=== PATIENT | female | born 1990 | race African-American/Black ===

== ENCOUNTER 2016-09-15 08:13 | Emergency (ER) | payer MEDICAID ==
[~2016-09-15] VITALS: Ht 175.3 cm; Wt 85.9 kg
[~2016-09-15 08:13] MED LIST: ADV500 IH; ALBU17AE27 IH; PREN1TAB80 PO
[2016-09-15] MEDS ORDERED: ALBUTEROL SULFATE HFA 90 MCG/PUFF 8 GM INHALER IH ONE (09:15)
[2016-09-15 10:11] VITALS: BP 130/60
== END 2016-09-15 10:13 | disposition home or self-care (01) ==
LOC: EMS 08:15
DX: J40 Bronchitis, not specified as acute or chronic (principal); J45.909 Unspecified asthma, uncomplicated; F12.90 Cannabis use, unspecified, uncomplicated; Z91.018 Allergy to other foods
CPT/HCPCS: 94640; 99283; J3535

== ENCOUNTER 2017-06-22 21:40 | Emergency (ER) | payer MEDICAID ==
[~2017-06-22] VITALS: Ht 170.2 cm; Wt 92.3 kg
[~2017-06-22 21:40] MED LIST changes: -ADV500 IH; -PREN1TAB80 PO
[2017-06-22 21:57] VITALS: BP 166/89
== END 2017-06-22 22:16 | disposition left against medical advice (07) ==
LOC: EMS 21:47
DX: T78.1XXA Other adverse food reactions, not elsewhere classified, initial encounter (principal); J45.909 Unspecified asthma, uncomplicated; F12.90 Cannabis use, unspecified, uncomplicated; Z53.21 Procedure and treatment not carried out due to patient leaving prior to being seen by health care provider; Y92.511 Restaurant or cafe as the place of occurrence of the external cause

== ENCOUNTER 2017-11-19 01:27 | Observation (INO) | payer MEDICAID ==
[~2017-11-19] VITALS: Ht 177.8 cm; Wt 104.3 kg
[2017-11-19 02:02] VITALS: BP 166/85
[2017-11-19 02:54] LABS: GLUCOMETER DEV NAME(LOC) 4S 8; GLUCOSE,POINT OF CARE 100 MG/DL (70-110)
[2017-11-19 05:14] LABS: APPEARANCE,URINE CLEAR (CLEAR); GLUCOSE, URINE (UA) NEGATIVE (NEGATIVE); KETONES,URINE NEGATIVE (NEGATIVE); LEUKOCYTE ESTERASE ,URINE NEGATIVE (NEGATIVE); NITRATE,URINE NEGATIVE (NEGATIVE); OCCULT BLOOD,URINE NEGATIVE (NEGATIVE); PH,URINE 8.5 (5.0-8.0); PROTEIN,URINE SEE CONFIRM (NEGATIVE); UROBILINOGEN,URINE 0.2 mg/dL (<=1.0)
[2017-11-19 05:15] LABS: BILIRUBIN,URINE PRELIM. POSITIVE (NEGATIVE)
[2017-11-19 05:35] LABS: SULFOSALICYLIC ACID,URINE Trace (Negative)
[2017-11-19 05:36] LABS: BACTERIA,URINE None Seen /HPF (None Seen); RBC,URINE None Seen /HPF (0-2); SQUAMOUS EPITHELIAL CELL,UR Moderate /LPF (None Seen); WBC,URINE 0-2 /HPF (0-5)
== END 2017-11-19 03:45 | disposition home or self-care (01) ==
LOC: 4S 01:27
PROVIDERS: ADMIT Obstetrics & Gynecology; ATTEND Obstetrics & Gynecology
DX: O62.9 Abnormality of forces of labor, unspecified (principal); O26.893 Other specified pregnancy related conditions, third trimester; R10.30 Lower abdominal pain, unspecified; Z3A.34 34 weeks gestation of pregnancy
CPT/HCPCS: 59025; 80307; 80324; 80349

== ENCOUNTER 2018-05-15 05:24 | Emergency (ER) | payer MEDICAID ==
[~2018-05-15 05:24] MED LIST changes: -ALBU17AE27 IH; +ARIP10TA8 PO
== END 2018-05-15 05:30 | disposition left against medical advice (07) ==
LOC: EMS 05:24
DX: M25.569 Pain in unspecified knee (principal); Z53.21 Procedure and treatment not carried out due to patient leaving prior to being seen by health care provider

== ENCOUNTER 2018-06-07 22:53 | Inpatient (IN) | payer MEDICAID ==
[~2018-06-07] VITALS: Ht 172.7 cm; Wt 85.3 kg
[2018-06-07] MEDS ORDERED: LORazepam 2 MG/ML VIAL IM ONE (23:00)
[2018-06-07] MEDS ORDERED: HALOPERIDOL LACTATE 5 MG/ML VIAL IM ONE (23:00)
[2018-06-07] MEDS ORDERED: DiphenhydrAMINE HCL 50 MG/ML VIAL IM ONE (23:00)
[2018-06-07] MEDS ORDERED: DiphenhydrAMINE HCL 50 MG/ML VIAL ONE (23:01)
[2018-06-07] MEDS ORDERED: HALOPERIDOL LACTATE 5 MG/ML VIAL ONE (23:01)
[2018-06-07] MEDS ORDERED: LORazepam 2 MG/ML VIAL ONE (23:01)
[2018-06-08 00:49] LABS: BASOPHILS % (AUTO) 0.8 % (0.0-2.0); EOSINOPHILS % (AUTO) 6.1 % (1.0-6.0); HEMATOCRIT 35.7 % (36-46); HEMOGLOBIN 11.6 g/dL (12.0-16.0); LYMPHOCYTES # (AUTO) 2.7 K/uL (1.0-4.8); LYMPHOCYTES % (AUTO) 38.6 % (22.0-44.0); MEAN CORPUSCULAR HEMOGLOBIN 27.8 pg (26.0-34.0); MEAN CORPUSCULAR HGB CONC 32.6 G/dL (31.0-37.0); MEAN CORPUSCULAR VOLUME 85 fL (80-100); MONOCYTES # (AUTO) 0.6 K/uL (0.1-1.0); MONOCYTES % (AUTO) 8.3 % (2.0-9.0); NEUTROPHILS # (AUTO) 3.2 K/uL (1.8-7.7); NEUTROPHILS % (AUTO) 46.2 % (40.0-70.0); PLATELET COUNT (AUTO) 277 K/uL (150-450); RED BLOOD CELL COUNT(AUTO) 4.18 MIL/uL (4.00-5.20)
[2018-06-08 00:56] LABS: AMPHET/METH SCREEN,URINE POSITIVE (NEGATIVE); BARBITURATE SCREEN, URINE NEGATIVE (NEGATIVE); BENZODIAZEPINES SCREEN,URINE NEGATIVE (NEGATIVE); CANNABINOID SCREEN,URINE NEGATIVE (NEGATIVE); COCAINE SCREEN,URINE NEGATIVE (NEGATIVE); METHADONE SCREEN, URINE NEGATIVE (NEGATIVE); OPIATE SCREEN,URINE NEGATIVE (NEGATIVE)
[2018-06-08 00:57] LABS: ANION GAP 6 mmol/L (8-16); CALCIUM, TOTAL 8.7 mg/dL (8.8-10.5); CARBON DIOXIDE 33 mmol/L (22-29); CHLORIDE 103 mmol/L (98-107); CREATININE 0.79 mg/dL (0.60-1.30); GLOMERULAR FILTR. RATE CALC > 60 mL/min (>60); GLUCOSE,RANDOM 87 mg/dL (70-110); POTASSIUM 3.1 mmol/L (3.5-5.1); SODIUM SERUM 142 mmol/L (136-145); UREA NITROGEN, BLOOD 13 mg/dL (7-18)
[2018-06-08 01:01] LABS: PHENCYCLIDINE SCREEN,URINE NEGATIVE (NEGATIVE)
[2018-06-08 01:08] LABS: ALANINE AMINOTRANSFERASE 36 U/L (12-78); ALKALINE PHOSPHATASE 64 U/L (46-116); ASPARTATE AMINOTRANSFERASE 54 U/L (15-37); BILIRUBIN,TOTAL 0.3 mg/dL (0.1-1.0); HCG,QUANTITATIVE < 1 mIU/mL (0-6); TOTAL PROTEIN, SERUM 6.3 g/dL (6.4-8.2)
[2018-06-08] MEDS ORDERED: ZOLPIDEM TARTRATE 10 MG TABLET PO PRN (06:15)
[2018-06-08 08:38] VITALS: BP 110/74
[2018-06-08] MEDS ORDERED: LOPERAMIDE HCL 2 MG CAPSULE PO PRN (09:30)
[2018-06-08] MEDS ORDERED: NICOTINE 14 MG/24 HOUR PATCH TD PRN (09:30)
[2018-06-08] MEDS ORDERED: IBUPROFEN 400 MG TABLET PO PRN (09:30)
[2018-06-08] MEDS ORDERED: ACETAMINOPHEN 325 MG TABLET PO PRN (09:30)
[2018-06-08] MEDS ORDERED: MAGNESIUM HYDROXIDE SUSPENSION 30 ML UDCUP PO PRN (09:30)
[2018-06-08] MEDS ORDERED: PETROLATUM,WHITE 71 GM JELLY TP PRN (09:30)
[2018-06-08] MEDS ORDERED: DOCUSATE SODIUM 100 MG CAPSULE PO PRN (09:30)
[2018-06-08] MEDS ORDERED: CloNIDine HCL 0.1 MG TABLET PO PRN (09:30)
[2018-06-08] MEDS ORDERED: POTASSIUM CHLORIDE 20 MEQ ER TABLET PO ONE (09:30)
[2018-06-08] MEDS ORDERED: GuaiFENesin/D-METHORPHAN [SUGAR-FREE] 200-20MG/10 ML SYRUP UDCUP PO PRN (09:30)
[2018-06-08] MEDS ORDERED: ONDANSETRON HCL 4 MG TABLET PO PRN (09:30)
[2018-06-08] MEDS ORDERED: MAG HYDROX/AL HYDROX/SIMETH ES 30 ML SUSPENSION UDCUP PO PRN (09:30)
[2018-06-08] MEDS ORDERED: PNEUMOCOCCAL VACCINE POLYVALENT 0.5 ML VIAL [PPSV23] IM ONE (11:15)
[2018-06-08] MEDS: SERTRALINE HCL 50 MG TABLET PO SCH (12:36)
[2018-06-08 16:52] VITALS: BP 109/70
[2018-06-08] MEDS: ZIPRASIDONE HCL 40 MG CAPSULE PO SCH (17:08)
[2018-06-09] MEDS: ZIPRASIDONE HCL 40 MG CAPSULE PO SCH ×2 (06:42→16:25)
[2018-06-09 07:00] VITALS: BP 115/64
[2018-06-09 08:23] LABS: CHOL/HDL RATIO 1.8 (3.9-5.7); FREE T4 (FREE THYROXINE) 0.96 ng/dL (0.76-1.46)
[2018-06-09] MEDS: SERTRALINE HCL 50 MG TABLET PO SCH (08:44)
[2018-06-09 17:32] VITALS: BP 139/61
[2018-06-09] MEDS: LORazepam 2 MG TABLET PO PRN (20:05)
[2018-06-09] MEDS: HALOPERIDOL 5 MG TABLET PO PRN (20:05)
[2018-06-10 05:36] VITALS: BP 128/80
[2018-06-10] MEDS: ZIPRASIDONE HCL 40 MG CAPSULE PO SCH (06:46)
[2018-06-10 08:21] VITALS: BP 128/70
[2018-06-10] MEDS: SERTRALINE HCL 50 MG TABLET PO SCH (08:44)
[2018-06-10] MEDS: HALOPERIDOL 5 MG TABLET PO PRN (15:25)
[2018-06-10] MEDS: LORazepam 2 MG TABLET PO PRN (15:25)
[2018-06-10] MEDS: ZIPRASIDONE HCL 60 MG CAPSULE PO SCH (16:58)
[2018-06-10 18:35] VITALS: BP 120/90
[2018-06-11 06:14] VITALS: BP 116/86
[2018-06-11] MEDS: ZIPRASIDONE HCL 60 MG CAPSULE PO SCH ×2 (06:55→16:46)
[2018-06-11 08:00] VITALS: BP 116/61
[2018-06-11] MEDS: SERTRALINE HCL 50 MG TABLET PO SCH (08:44)
[2018-06-11] MEDS: LORazepam 2 MG TABLET PO PRN (08:48)
[2018-06-11 18:39] VITALS: BP 120/71
[2018-06-12 03:01] VITALS: BP 125/82
[2018-06-12] MEDS: ZIPRASIDONE HCL 60 MG CAPSULE PO SCH ×2 (06:54→16:19)
[2018-06-12] MEDS: SERTRALINE HCL 50 MG TABLET PO SCH (09:01)
[2018-06-12 09:16] VITALS: BP 115/62
[2018-06-12] MEDS: LORazepam 2 MG TABLET PO PRN (16:19)
[2018-06-12] MEDS: HALOPERIDOL 5 MG TABLET PO PRN (16:19)
[2018-06-12] MEDS: ALBUTEROL SULFATE HFA 90 MCG/PUFF 8 GM INHALER IH PRN (16:40)
[2018-06-12 17:01] VITALS: BP 114/64
[2018-06-13] MEDS: ZIPRASIDONE HCL 60 MG CAPSULE PO SCH ×2 (06:50→17:08)
[2018-06-13 07:02] VITALS: BP 110/62
[2018-06-13 08:25] VITALS: BP 124/69
[2018-06-13] MEDS: SERTRALINE HCL 50 MG TABLET PO SCH (09:00)
[2018-06-13] MEDS: HALOPERIDOL 5 MG TABLET PO PRN ×2 (12:43→17:08)
[2018-06-13] MEDS: LORazepam 2 MG TABLET PO PRN ×2 (12:43→17:08)
[2018-06-14 04:10] VITALS: BP 100/88
[2018-06-14] MEDS: ZIPRASIDONE HCL 80 MG CAPSULE PO SCH ×2 (09:00→16:21)
[2018-06-14] MEDS: SERTRALINE HCL 50 MG TABLET PO SCH ×2 (09:00→12:17)
[2018-06-14] MEDS: LORazepam 2 MG TABLET PO PRN (12:19)
[2018-06-14 16:56] VITALS: BP 110/65
[2018-06-15 05:19] VITALS: BP 111/68
[2018-06-15] MEDS: ZIPRASIDONE HCL 80 MG CAPSULE PO SCH ×2 (06:51→17:12)
[2018-06-15] MEDS: SERTRALINE HCL 50 MG TABLET PO SCH (09:00)
[2018-06-15] MEDS: HALOPERIDOL 5 MG TABLET PO PRN ×3 (09:38→20:55)
[2018-06-15] MEDS: LORazepam 2 MG TABLET PO PRN ×3 (09:38→20:55)
[2018-06-15 16:10] VITALS: BP 123/77
[2018-06-15] MEDS: DIVALPROEX SODIUM 250 MG ER TABLET PO SCH (17:12)
[2018-06-16] MEDS: ZIPRASIDONE HCL 80 MG CAPSULE PO SCH ×2 (06:49→17:12)
[2018-06-16] MEDS: DIVALPROEX SODIUM 250 MG ER TABLET PO SCH ×2 (08:15→17:12)
[2018-06-16] MEDS: SERTRALINE HCL 50 MG TABLET PO SCH (08:15)
[2018-06-16 16:17] VITALS: BP 109/69
[2018-06-17 01:17] VITALS: BP 118/66
[2018-06-17] MEDS: ZIPRASIDONE HCL 80 MG CAPSULE PO SCH ×2 (06:55→17:03)
[2018-06-17] MEDS: DIVALPROEX SODIUM 250 MG ER TABLET PO SCH ×2 (09:32→17:03)
[2018-06-17] MEDS: SERTRALINE HCL 50 MG TABLET PO SCH (09:32)
[2018-06-17] MEDS: HALOPERIDOL 5 MG TABLET PO PRN (15:54)
[2018-06-17] MEDS: LORazepam 2 MG TABLET PO PRN (15:54)
[2018-06-17] MEDS: ALBUTEROL SULFATE HFA 90 MCG/PUFF 8 GM INHALER IH PRN (17:04)
[2018-06-17 19:20] VITALS: BP 124/68
[2018-06-18] MEDS: ZIPRASIDONE HCL 80 MG CAPSULE PO SCH ×2 (06:45→17:12)
[2018-06-18 08:09] VITALS: BP 126/69
[2018-06-18 08:38] LABS: BASOPHILS % (AUTO) 0.9 % (0.0-2.0); EOSINOPHILS % (AUTO) 4.7 % (1.0-6.0); HEMATOCRIT 38.7 % (36-46); HEMOGLOBIN 12.6 g/dL (12.0-16.0); LYMPHOCYTES # (AUTO) 2.8 K/uL (1.0-4.8); LYMPHOCYTES % (AUTO) 47.4 % (22.0-44.0); MEAN CORPUSCULAR HGB CONC 32.7 G/dL (31.0-37.0); MEAN CORPUSCULAR VOLUME 86 fL (80-100); MONOCYTES # (AUTO) 0.4 K/uL (0.1-1.0); MONOCYTES % (AUTO) 6.1 % (2.0-9.0); NEUTROPHILS # (AUTO) 2.4 K/uL (1.8-7.7); NEUTROPHILS % (AUTO) 40.9 % (40.0-70.0); PLATELET COUNT (AUTO) 297 K/uL (150-450); RED BLOOD CELL COUNT(AUTO) 4.51 MIL/uL (4.00-5.20)
[2018-06-18] MEDS: HALOPERIDOL 5 MG TABLET PO PRN ×2 (08:57→16:33)
[2018-06-18] MEDS: SERTRALINE HCL 50 MG TABLET PO SCH (08:57)
[2018-06-18] MEDS: DIVALPROEX SODIUM 250 MG ER TABLET PO SCH (08:57)
[2018-06-18 09:34] LABS: ANION GAP 7 mmol/L (8-16); CALCIUM, TOTAL 8.7 mg/dL (8.8-10.5); CARBON DIOXIDE 29 mmol/L (22-29); CHLORIDE 103 mmol/L (98-107); CREATININE 0.64 mg/dL (0.60-1.30); GLOMERULAR FILTR. RATE CALC > 60 mL/min (>60); GLUCOSE,RANDOM 81 mg/dL (70-110); POTASSIUM 4.4 mmol/L (3.5-5.1); SODIUM SERUM 139 mmol/L (136-145); UREA NITROGEN, BLOOD 18 mg/dL (7-18); VALPROIC ACID 25 mcg/mL (50-100)
[2018-06-18] MEDS: DIVALPROEX SODIUM 500 MG ER TABLET PO SCH (17:12)
[2018-06-18] MEDS ORDERED: LORazepam 2 MG TABLET PO PRN (19:45)
[2018-06-18] MEDS ORDERED: ZOLPIDEM TARTRATE 10 MG TABLET PO PRN (19:45)
[2018-06-19] MEDS: ZIPRASIDONE HCL 80 MG CAPSULE PO SCH ×2 (06:52→17:05)
[2018-06-19] MEDS: DIVALPROEX SODIUM 500 MG ER TABLET PO SCH ×3 (09:00→17:05)
[2018-06-19] MEDS: SERTRALINE HCL 50 MG TABLET PO SCH ×2 (09:00→12:20)
[2018-06-19] MEDS: HALOPERIDOL 5 MG TABLET PO PRN ×2 (12:20→21:31)
[2018-06-19 16:06] VITALS: BP 126/66
[2018-06-20 05:44] VITALS: BP 125/65
[2018-06-20] MEDS: ZIPRASIDONE HCL 80 MG CAPSULE PO SCH (06:38)
[2018-06-20 08:15] VITALS: BP 119/78
[2018-06-20] MEDS: DIVALPROEX SODIUM 500 MG ER TABLET PO SCH (09:18)
[2018-06-20] MEDS: SERTRALINE HCL 50 MG TABLET PO SCH (09:18)
[2018-06-20] MEDS ORDERED: SERT50TA12 PO (11:10)
[2018-06-20] MEDS ORDERED: DIVA500T52 PO (11:10)
[2018-06-20] MEDS ORDERED: ZIPR80CA2 PO (11:10)
== END 2018-06-20 15:35 | disposition home or self-care (01) | DRG 750 ==
LOC: EMS 22:54 → B2S 06-08 06:20 → B3A 06-10 18:35
PROVIDERS: ADMIT Psychiatry & Neurology Psychiatry; ATTEND Psychiatry & Neurology Psychiatry
DX: F25.0 Schizoaffective disorder, bipolar type (principal); R45.850 Homicidal ideations; R45.851 Suicidal ideations; D64.9 Anemia, unspecified; E87.6 Hypokalemia; F15.10 Other stimulant abuse, uncomplicated; F41.9 Anxiety disorder, unspecified; I10 Essential (primary) hypertension; J45.909 Unspecified asthma, uncomplicated; Z59.0 Homelessness; Z91.19 Patient's noncompliance with other medical treatment and regimen; Z88.8 Allergy status to other drugs, medicaments and biological substances; Z79.899 Other long term (current) drug therapy; Z28.21 Immunization not carried out because of patient refusal
CPT/HCPCS: 84132; 84439; 87081; 96372; G0480; J1200; J1630; J2060; J3535; Q0162

== ENCOUNTER 2018-08-01 12:56 | Emergency (ER) | payer MEDICAID ==
[~2018-08-01 12:56] MED LIST changes: -ARIP10TA8 PO; +DIVA500T52 PO; +SERT50TA12 PO; +ZIPR80CA2 PO
== END 2018-08-01 13:33 | disposition left against medical advice (07) ==
LOC: EMS 12:58
DX: S91.319A Laceration without foreign body, unspecified foot, initial encounter (principal); Z53.21 Procedure and treatment not carried out due to patient leaving prior to being seen by health care provider; X58.XXXA Exposure to other specified factors, initial encounter; Y93.89 Activity, other specified; Y92.89 Other specified places as the place of occurrence of the external cause; Y99.8 Other external cause status

== ENCOUNTER 2018-08-21 03:22 | Emergency (ER) | payer MEDICAID ==
[~2018-08-21] VITALS: Ht 175.3 cm; Wt 84.1 kg
[2018-08-21] MEDS ORDERED: LIDOCAINE 1% 10 ML VIAL INJ ONE (05:30)
[2018-08-21 07:00] VITALS: BP 158/73
== END 2018-08-21 07:20 | disposition home or self-care (01) ==
LOC: EMS 03:22
DX: S63.285A Dislocation of proximal interphalangeal joint of left ring finger, initial encounter (principal); J45.909 Unspecified asthma, uncomplicated; F17.210 Nicotine dependence, cigarettes, uncomplicated; F11.20 Opioid dependence, uncomplicated; Z79.899 Other long term (current) drug therapy; Z91.018 Allergy to other foods; V00.131A Fall from skateboard, initial encounter; Y93.51 Activity, roller skating (inline) and skateboarding; Y92.89 Other specified places as the place of occurrence of the external cause; Y99.8 Other external cause status
CPT/HCPCS: 26770; 73130; 99284; J3490

== ENCOUNTER 2018-08-30 00:52 | Emergency (ER) | payer MEDICAID ==
[~2018-08-30] VITALS: Ht 172.7 cm; Wt 75.9 kg
[2018-08-30] MEDS: LORazepam 2 MG/ML VIAL IM ONE (02:18)
[2018-08-30] MEDS: HALOPERIDOL LACTATE 5 MG/ML VIAL IM ONE (02:18)
[2018-08-30] MEDS: DiphenhydrAMINE HCL 50 MG/ML VIAL IM ONE (02:18)
[2018-08-30 05:36] VITALS: BP 122/70
[2018-09-02] MEDS ORDERED: AMOX1TAB16 PO (23:47)
== END 2018-08-30 05:58 | disposition home or self-care (01) ==
LOC: EMS 00:54
DX: R45.1 Restlessness and agitation (principal); J45.909 Unspecified asthma, uncomplicated; F17.210 Nicotine dependence, cigarettes, uncomplicated; F12.90 Cannabis use, unspecified, uncomplicated; Z91.018 Allergy to other foods
CPT/HCPCS: 99285; J1200; J1630; J2060

== ENCOUNTER 2018-11-21 02:56 | Emergency (ER) | payer MEDICAID ==
[~2018-11-21] VITALS: Ht 172.7 cm; Wt 77.7 kg
[~2018-11-21 02:56] MED LIST changes: +AMLO2.5T4 PO; +SERT100T12 PO; -SERT50TA12 PO
[2018-11-21 04:18] LABS: APPEARANCE,URINE CLEAR (CLEAR); BILIRUBIN,URINE NEGATIVE (NEGATIVE); GLUCOSE, URINE (UA) NEGATIVE (NEGATIVE); KETONES,URINE NEGATIVE (NEGATIVE); LEUKOCYTE ESTERASE ,URINE NEGATIVE (NEGATIVE); NITRATE,URINE NEGATIVE (NEGATIVE); OCCULT BLOOD,URINE NEGATIVE (NEGATIVE); PROTEIN,URINE TRACE (NEGATIVE); UROBILINOGEN,URINE 0.2 mg/dL (<=1.0)
[2018-11-21 04:23] LABS: AMPHET/METH SCREEN,URINE POSITIVE (NEGATIVE); BARBITURATE SCREEN, URINE NEGATIVE (NEGATIVE); BENZODIAZEPINES SCREEN,URINE NEGATIVE (NEGATIVE); CANNABINOID SCREEN,URINE POSITIVE (NEGATIVE); COCAINE SCREEN,URINE NEGATIVE (NEGATIVE); METHADONE SCREEN, URINE NEGATIVE (NEGATIVE); OPIATE SCREEN,URINE NEGATIVE (NEGATIVE)
[2018-11-21 04:35] LABS: PHENCYCLIDINE SCREEN,URINE NEGATIVE (NEGATIVE)
[2018-11-21 04:38] LABS: BACTERIA,URINE None Seen /HPF (None Seen); RBC,URINE 0-2 /HPF (0-2); SQUAMOUS EPITHELIAL CELL,UR Moderate /LPF (None Seen)
[2018-11-21 05:02] VITALS: BP 123/85
== END 2018-11-21 05:51 | disposition home or self-care (01) ==
LOC: EMS 02:58
DX: S51.019A Laceration without foreign body of unspecified elbow, initial encounter (principal); S90.812A Abrasion, left foot, initial encounter; S09.90XA Unspecified injury of head, initial encounter; M25.561 Pain in right knee; J45.909 Unspecified asthma, uncomplicated; F12.90 Cannabis use, unspecified, uncomplicated; F17.210 Nicotine dependence, cigarettes, uncomplicated; Z91.018 Allergy to other foods; W05.1XXA Fall from non-moving nonmotorized scooter, initial encounter; Y93.89 Activity, other specified; Y92.89 Other specified places as the place of occurrence of the external cause; Y99.8 Other external cause status
CPT/HCPCS: 29505; 70450; 72125

== ENCOUNTER 2018-12-02 22:35 | Emergency (ER) | payer MEDICAID ==
[~2018-12-02] VITALS: Ht 175.3 cm; Wt 88.6 kg
[2018-12-02 23:06] VITALS: BP 125/111
== END 2018-12-03 00:10 | disposition left against medical advice (07) ==
LOC: EMS 22:36
DX: R23.8 Other skin changes (principal); F17.210 Nicotine dependence, cigarettes, uncomplicated; Z53.21 Procedure and treatment not carried out due to patient leaving prior to being seen by health care provider

== ENCOUNTER 2019-01-14 21:26 | Inpatient (IN) | payer MEDICAID ==
[~2019-01-14] VITALS: Ht 177.8 cm; Wt 77.6 kg
[2019-01-14] MEDS ORDERED: ZIPR40CA2 PO (21:56)
[2019-01-14] MEDS ORDERED: SERT50TA12 PO (21:56)
[2019-01-14 23:30] LABS: BASOPHILS % (AUTO) 0.6 % (0.0-2.0); EOSINOPHILS % (AUTO) 1.6 % (1.0-6.0); HEMATOCRIT 41.6 % (36-46); HEMOGLOBIN 13.1 g/dL (12.0-16.0); LYMPHOCYTES % (AUTO) 26.3 % (22.0-44.0); MEAN CORPUSCULAR HEMOGLOBIN 28.7 pg (26.0-34.0); MEAN CORPUSCULAR HGB CONC 31.6 G/dL (31.0-37.0); MEAN CORPUSCULAR VOLUME 91 fL (80-100); MONOCYTES # (AUTO) 0.3 K/uL (0.1-1.0); MONOCYTES % (AUTO) 4.4 % (2.0-9.0); NEUTROPHILS % (AUTO) 67.1 % (40.0-70.0); PLATELET COUNT (AUTO) 305 K/uL (150-450); RED BLOOD CELL COUNT(AUTO) 4.58 MIL/uL (4.00-5.20); RED CELL DISTRIBUTION WIDTH 13.9 % (11.5-14.5)
[2019-01-15 00:12] LABS: ANION GAP 9 mmol/L (8-16); CALCIUM, TOTAL 9.2 mg/dL (8.8-10.5); CARBON DIOXIDE 27 mmol/L (22-29); CHLORIDE 101 mmol/L (98-107); CREATININE 0.84 mg/dL (0.60-1.30); GLOMERULAR FILTR. RATE CALC > 60 mL/min (>60); GLUCOSE,RANDOM 90 mg/dL (70-110); POTASSIUM 4.1 mmol/L (3.5-5.1); SODIUM SERUM 137 mmol/L (136-145); UREA NITROGEN, BLOOD 11 mg/dL (7-18)
[2019-01-15 00:31] LABS: AMPHET/METH SCREEN,URINE POSITIVE (NEGATIVE); BARBITURATE SCREEN, URINE NEGATIVE (NEGATIVE); BENZODIAZEPINES SCREEN,URINE NEGATIVE (NEGATIVE); CANNABINOID SCREEN,URINE POSITIVE (NEGATIVE); COCAINE SCREEN,URINE NEGATIVE (NEGATIVE); METHADONE SCREEN, URINE NEGATIVE (NEGATIVE); OPIATE SCREEN,URINE NEGATIVE (NEGATIVE)
[2019-01-15 00:34] LABS: PHENCYCLIDINE SCREEN,URINE NEGATIVE (NEGATIVE)
[2019-01-15 00:39] LABS: ALANINE AMINOTRANSFERASE 7 U/L (12-78); ALBUMIN 3.5 g/dL (3.4-5.0); ALKALINE PHOSPHATASE 62 U/L (46-116); ASPARTATE AMINOTRANSFERASE 24 U/L (15-37); BILIRUBIN,TOTAL 0.2 mg/dL (0.1-1.0); HCG,QUANTITATIVE 49132 mIU/mL (0-6); TOTAL PROTEIN, SERUM 7.2 g/dL (6.4-8.2)
[2019-01-15] MEDS ORDERED: ACETAMINOPHEN 325 MG TABLET PO PRN (10:00)
[2019-01-15] MEDS ORDERED: IBUPROFEN 400 MG TABLET PO PRN (10:00)
[2019-01-15] MEDS ORDERED: HALOPERIDOL 5 MG TABLET PO PRN (10:00)
[2019-01-15] MEDS ORDERED: ZOLPIDEM TARTRATE 10 MG TABLET PO PRN (10:00)
[2019-01-15] MEDS ORDERED: HALOPERIDOL LACTATE 5 MG/ML VIAL IM ONE (11:00)
[2019-01-15] MEDS: PRENATAL NO.137/IRON/FOLIC ACID TABLET PO SCH (13:47)
[2019-01-15] MEDS ORDERED: MAGNESIUM HYDROXIDE SUSPENSION 30 ML UDCUP PO PRN (14:30)
[2019-01-15] MEDS ORDERED: ONDANSETRON HCL 4 MG TABLET PO PRN (14:30)
[2019-01-15] MEDS ORDERED: DOCUSATE SODIUM 100 MG CAPSULE PO PRN (14:30)
[2019-01-15] MEDS ORDERED: MAG HYDROX/AL HYDROX/SIMETH ES 30 ML SUSPENSION UDCUP PO PRN (14:30)
[2019-01-15] MEDS ORDERED: ALBUTEROL SULFATE HFA 90 MCG/PUFF 8 GM INHALER IH PRN (14:30)
[2019-01-15] MEDS ORDERED: CloNIDine HCL 0.1 MG TABLET PO PRN (14:30)
[2019-01-15] MEDS ORDERED: PETROLATUM,WHITE 28 GM JELLY TP PRN (14:30)
[2019-01-15] MEDS: HALOPERIDOL 5 MG TABLET PO SCH (16:19)
[2019-01-16] MEDS: PRENATAL NO.137/IRON/FOLIC ACID TABLET PO SCH (09:41)
[2019-01-16] MEDS: HALOPERIDOL 5 MG TABLET PO SCH ×2 (09:42→16:19)
[2019-01-16] MEDS: FLUoxetine HCL 20 MG CAPSULE PO SCH (09:42)
[2019-01-16 16:19] VITALS: BP 96/89
[2019-01-17] MEDS: PRENATAL NO.137/IRON/FOLIC ACID TABLET PO SCH (08:49)
[2019-01-17] MEDS: HALOPERIDOL 5 MG TABLET PO SCH ×2 (08:49→16:29)
[2019-01-17] MEDS: FLUoxetine HCL 20 MG CAPSULE PO SCH (08:50)
[2019-01-17] MEDS ORDERED: PRENATAL NO.137/IRON/FOLIC ACID TABLET PO SCH (09:00)
[2019-01-17 09:42] VITALS: BP 117/60
[2019-01-17 16:00] VITALS: BP 134/69
[2019-01-17] MEDS ORDERED: FLUO-191 PO (16:21)
[2019-01-17] MEDS ORDERED: HALO5TAB2 PO (16:21)
[2019-01-17] MEDS ORDERED: DiphenhydrAMINE HCL 50 MG/ML VIAL ONE (17:20)
[2019-01-17] MEDS ORDERED: HALOPERIDOL 5 MG TABLET PO ONE (17:30)
[2019-01-17] MEDS ORDERED: DiphenhydrAMINE HCL 25 MG CAPSULE ONE (17:30)
[2019-01-17] MEDS ORDERED: DiphenhydrAMINE HCL 25 MG CAPSULE PO ONE (17:30)
[2019-01-18] MEDS: HALOPERIDOL 5 MG TABLET PO SCH ×2 (08:56→09:00)
[2019-01-18] MEDS: PRENATAL NO.137/IRON/FOLIC ACID TABLET PO SCH (08:57)
[2019-01-18] MEDS: FLUoxetine HCL 20 MG CAPSULE PO SCH ×2 (08:57→09:00)
[2019-01-18] MEDS ORDERED: PREN-217 PO (11:36)
== END 2019-01-18 14:00 | disposition home or self-care (01) | DRG 566 ==
LOC: EMS 21:27 → 3EX 01-15 10:18 → 3EC 01-15 10:35
PROVIDERS: ADMIT Psychiatry & Neurology Psychiatry; ATTEND Psychiatry & Neurology Psychiatry
DX: O99.341 Other mental disorders complicating pregnancy, first trimester (principal); F15.20 Other stimulant dependence, uncomplicated; R45.851 Suicidal ideations; F25.0 Schizoaffective disorder, bipolar type; O16.1 Unspecified maternal hypertension, first trimester; O99.321 Drug use complicating pregnancy, first trimester; F41.9 Anxiety disorder, unspecified; J45.909 Unspecified asthma, uncomplicated; F17.210 Nicotine dependence, cigarettes, uncomplicated; O99.331 Smoking (tobacco) complicating pregnancy, first trimester; O99.511 Diseases of the respiratory system complicating pregnancy, first trimester; Z59.0 Homelessness; Z91.14 Patient's other noncompliance with medication regimen; Z3A.01 Less than 8 weeks gestation of pregnancy
CPT/HCPCS: 76801; 76817; G0480; J1200; J1630

== ENCOUNTER 2019-03-24 16:26 | Emergency (ER) | payer MEDICAID ==
[~2019-03-24] VITALS: Ht 175.3 cm; Wt 85.0 kg
[~2019-03-24 16:26] MED LIST changes: -AMLO2.5T4 PO; -DIVA500T52 PO; +FLUO-191 PO; +HALO5TAB2 PO; +PREN-217 PO; -SERT100T12 PO; -ZIPR80CA2 PO
[2019-03-24 17:04] VITALS: BP 143/85
[2019-03-24 17:23] LABS: BASOPHILS % (AUTO) 0.4 % (0.0-2.0); EOSINOPHILS % (AUTO) 1.4 % (1.0-6.0); HEMOGLOBIN 11.2 g/dL (12.0-16.0); LYMPHOCYTES % (AUTO) 29.8 % (22.0-44.0); MEAN CORPUSCULAR HEMOGLOBIN 29.4 pg (26.0-34.0); MEAN CORPUSCULAR HGB CONC 32.8 G/dL (31.0-37.0); MEAN CORPUSCULAR VOLUME 90 fL (80-100); MONOCYTES # (AUTO) 0.4 K/uL (0.1-1.0); MONOCYTES % (AUTO) 6.2 % (2.0-9.0); NEUTROPHILS # (AUTO) 4.2 K/uL (1.8-7.7); NEUTROPHILS % (AUTO) 62.2 % (40.0-70.0); PLATELET COUNT (AUTO) 226 K/uL (150-450); RED CELL DISTRIBUTION WIDTH 14.7 % (11.5-14.5)
[2019-03-24 17:37] LABS: ANION GAP 6 mmol/L (8-16); CALCIUM, TOTAL 7.9 mg/dL (8.8-10.5); CARBON DIOXIDE 28 mmol/L (22-29); CHLORIDE 104 mmol/L (98-107); GLOMERULAR FILTR. RATE CALC > 60 mL/min (>60); GLUCOSE,RANDOM 75 mg/dL (70-110); POTASSIUM 3.4 mmol/L (3.5-5.1); SODIUM SERUM 138 mmol/L (136-145); UREA NITROGEN, BLOOD 10 mg/dL (7-18)
[2019-03-24 18:15] LABS: ALANINE AMINOTRANSFERASE 10 U/L (12-78); ALBUMIN 2.7 g/dL (3.4-5.0); ALKALINE PHOSPHATASE 38 U/L (46-116); ASPARTATE AMINOTRANSFERASE 22 U/L (15-37); BILIRUBIN,TOTAL 0.2 mg/dL (0.1-1.0); HCG,QUANTITATIVE 15436 mIU/mL (0-6); LIPASE 72 U/L (73-393); TOTAL PROTEIN, SERUM 6.3 g/dL (6.4-8.2)
== END 2019-03-24 17:52 | disposition home or self-care (01) ==
LOC: EMS 16:29
DX: O26.892 Other specified pregnancy related conditions, second trimester (principal); R10.9 Unspecified abdominal pain; O99.332 Smoking (tobacco) complicating pregnancy, second trimester; F17.210 Nicotine dependence, cigarettes, uncomplicated; F15.90 Other stimulant use, unspecified, uncomplicated; Z3A.20 20 weeks gestation of pregnancy; Z98.890 Other specified postprocedural states; Z79.899 Other long term (current) drug therapy